=== PATIENT | male | born 1935 | race Caucasian/White ===

== ENCOUNTER 2016-07-30 09:10 | Outpatient (CLI) ==
[2016-07-30 09:36] LABS: BASOPHILS % (AUTO) 0.5 % (0.0-3.0); EOSINOPHILS # (AUTO) 0.1 K/ul (0.0-0.7); EOSINOPHILS % (AUTO) 1.4 % (0.0-7.0); HEMATOCRIT 39.6 % (42.0-52.0); IMMATURE GRANULOCYTE % (AUTO) 0.3 % (0.0-5.0); LYMPHOCYTES # (AUTO) 1.7 K/uL (0.60-3.4); LYMPHOCYTES % (AUTO) 26.5 (10.0-50.0); MEAN CORPUSCULAR HEMOGLOBIN 31.2 pg (27.0-31.0); MEAN CORPUSCULAR HGB CONC 32.8 (31.8-35.4); MONOCYTES # (AUTO) 0.7 K/uL (0.4-2.0); MONOCYTES % (AUTO) 11.2 (0-10); NEUTROPHILS # (AUTO) 3.8 K/ul (2.0-6.9); NEUTROPHILS % (AUTO) 60.1; PLATELET COUNT 171 10^3/uL (140-440); RED BLOOD COUNT 4.17 10^6/ul (4.70-6.10); WHITE BLOOD COUNT 6.34 K/ul (4.2-10.2)
[2016-07-30 09:55] LABS: ALBUMIN 3.6 g/dL (3.4-5.0); ALBUMIN/GLOBULIN RATIO 1.29; ANION GAP 11.9; BILIRUBIN,TOTAL 0.8 mg/dL (0.00-1.20); BUN/CREATININE RATIO 12.24; CALCIUM 8.9 mg/dL (8.2-10.2); CREATININE 0.98 mg/dL (0.60-1.10); POTASSIUM 3.9 mmol/L (3.5-5.1); TOTAL PROTEIN 6.4 g/dL (5.8-8.1)
[2016-07-30 11:33] LABS: BILIRUBIN,URINE Negative (NEGATIVE); KETONES,URINE Negative (NEGATIVE); LEUKOCYTE ESTERASE ,URINE Negative (NEGATIVE); NITRITE,URINE Negative (NEGATIVE); PROTEIN,URINE Negative (NEGATIVE); URINE, BLOOD Trace-intact (NEGATIVE)
[2016-07-30 11:41] LABS: ADD URINE MICROSCOPIC YES
== END 2016-07-30 09:11 | disposition home or self-care (01) ==
LOC: LAB 09:10
PROVIDERS: ATTEND Family Medicine
DX: I25.10 Atherosclerotic heart disease of native coronary artery without angina pectoris (principal); I50.9 Heart failure, unspecified; E78.5 Hyperlipidemia, unspecified; E11.9 Type 2 diabetes mellitus without complications
CPT/HCPCS: 36415; 80053; 80061; 81001; 83036; 85025

== ENCOUNTER 2016-12-17 07:45 | Outpatient (CLI) ==
[2016-12-17 08:32] LABS: BASOPHILS % (AUTO) 0.4 % (0.0-3.0); EOSINOPHILS # (AUTO) 0.1 K/ul (0.0-0.7); EOSINOPHILS % (AUTO) 0.8 % (0.0-7.0); HEMATOCRIT 41.9 % (42.0-52.0); IMMATURE GRANULOCYTE % (AUTO) 0.4 % (0.0-5.0); LYMPHOCYTES # (AUTO) 1.6 K/uL (0.60-3.4); LYMPHOCYTES % (AUTO) 22.9 (10.0-50.0); MEAN CORPUSCULAR HGB CONC 33.4 (31.8-35.4); MEAN CORPUSCULAR VOLUME 95.9 fl (80.0-94.0); MONOCYTES # (AUTO) 0.6 K/uL (0.4-2.0); MONOCYTES % (AUTO) 8.9 (0-10); NEUTROPHILS # (AUTO) 4.7 K/ul (2.0-6.9); NEUTROPHILS % (AUTO) 66.6; PLATELET COUNT 176 10^3/uL (140-440); RED BLOOD COUNT 4.37 10^6/ul (4.70-6.10); WHITE BLOOD COUNT 7.06 K/ul (4.2-10.2)
[2016-12-17 08:53] LABS: ALBUMIN 3.5 g/dL (3.4-5.0); ALBUMIN/GLOBULIN RATIO 1.21; BILIRUBIN,TOTAL 0.61 mg/dL (0.00-1.20); BUN/CREATININE RATIO 12.5; CALCIUM 9.5 mg/dL (8.2-10.2); CHOL/HDL RATIO 3.7 (4.5-6.4); CREATININE 0.88 mg/dL (0.60-1.10); TOTAL PROTEIN 6.4 g/dL (5.8-8.1)
[2016-12-17 09:34] LABS: BASOPHILS % (AUTO) 0.4 % (0.0-3.0); EOSINOPHILS # (AUTO) 0.1 K/ul (0.0-0.7); EOSINOPHILS % (AUTO) 0.8 % (0.0-7.0); HEMATOCRIT 42.2 % (42.0-52.0); HEMOGLOBIN 13.9 g/dl (14.0-18.0); IMMATURE GRANULOCYTE % (AUTO) 0.3 % (0.0-5.0); LYMPHOCYTES # (AUTO) 1.7 K/uL (0.60-3.4); LYMPHOCYTES % (AUTO) 23.3 (10.0-50.0); MEAN CORPUSCULAR HEMOGLOBIN 31.6 pg (27.0-31.0); MEAN CORPUSCULAR HGB CONC 32.9 (31.8-35.4); MEAN CORPUSCULAR VOLUME 95.9 fl (80.0-94.0); MONOCYTES # (AUTO) 0.7 K/uL (0.4-2.0); NEUTROPHILS # (AUTO) 4.9 K/ul (2.0-6.9); NEUTROPHILS % (AUTO) 66.2; PLATELET COUNT 179 10^3/uL (140-440); WHITE BLOOD COUNT 7.37 K/ul (4.2-10.2)
[2016-12-17 09:37] LABS: BILIRUBIN,URINE Negative (NEGATIVE); KETONES,URINE Negative (NEGATIVE); LEUKOCYTE ESTERASE ,URINE Negative (NEGATIVE); NITRITE,URINE Negative (NEGATIVE); PROTEIN,URINE Negative (NEGATIVE); URINE, BLOOD Trace-intact (NEGATIVE)
[2016-12-17 09:38] LABS: ADD URINE MICROSCOPIC YES
[2016-12-17 09:45] LABS: ALBUMIN 3.5 g/dL (3.4-5.0); ALBUMIN/GLOBULIN RATIO 1.21; BILIRUBIN,TOTAL 0.6 mg/dL (0.00-1.20); BUN/CREATININE RATIO 12.5; CALCIUM 9.5 mg/dL (8.2-10.2); CHOL/HDL RATIO 3.6 (4.5-6.4); CREATININE 0.88 mg/dL (0.60-1.10); TOTAL PROTEIN 6.4 g/dL (5.8-8.1)
== END 2016-12-17 07:46 | disposition home or self-care (01) ==
LOC: LAB 07:45
PROVIDERS: ATTEND Family Medicine
DX: E78.5 Hyperlipidemia, unspecified (principal); I10 Essential (primary) hypertension; E11.9 Type 2 diabetes mellitus without complications; I50.9 Heart failure, unspecified; I25.10 Atherosclerotic heart disease of native coronary artery without angina pectoris; Z79.899 Other long term (current) drug therapy
CPT/HCPCS: 36415; 80053; 80061; 81001; 83036; 83880; 85025

== ENCOUNTER 2017-06-17 07:39 | Outpatient (CLI) | END 2017-06-17 07:40 | disposition home or self-care (01) | LOC: LAB 07:39 | PROVIDERS: ATTEND Family Medicine | DX: E78.00 Pure hypercholesterolemia, unspecified (principal); I25.10 Atherosclerotic heart disease of native coronary artery without angina pectoris; I50.9 Heart failure, unspecified; E11.9 Type 2 diabetes mellitus without complications; Z79.899 Other long term (current) drug therapy | CPT/HCPCS: 36415; 80053; 80061; 81001; 83036; 85025 ==

== ENCOUNTER 2022-02-28 19:15 | Inpatient (IN) ==
[2022-02-28] MEDS ORDERED: DUONEB NEB ONE (19:45)
[2022-02-28] MEDS ORDERED: DUONEB NEB STA (19:56)
[2022-02-28 20:21] LABS: MOLECULAR FLU A NEGATIVE BY NAAT (NEGATIVE); MOLECULAR FLU B NEGATIVE BY NAAT (NEGATIVE); RSV MOLECULAR NEGATIVE BY NAAT (NEGATIVE)
[2022-02-28] MEDS ORDERED: ROCEPHIN 1 GM/50 ML D5W 1 GM/50 ML BAG IV STA (20:27)
[2022-02-28] MEDS ORDERED: ZITHROMAX PO STA (20:28)
[2022-02-28 20:37] LABS: ALANINE AMINOTRANSFERASE 70.4 U/L (0-50); ALBUMIN 3.41 g/dL (3.5-5.0); ALKALINE PHOSPHATASE 84.3 U/L (56-119); ASPARTATE AMINO TRANSFERASE 81.8 U/L (17-59); BILIRUBIN,TOTAL 1.6 mg/dL (0.2-1.3); BLOOD UREA NITROGEN 29.4 mg/dL (9-20); CALCIUM 8.96 mg/dL (8.4-10.2); CARBON DIOXIDE 30.4 mmol/L (22-30.0); CHLORIDE 107.7 mmol/L (98-107); CREATINE KINASE 76.8 U/L (55-170); CREATININE 1.3 mg/dL (0.60-1.10); GLUCOSE 180.3 mg/dL (74-106); POTASSIUM 4.3 mmol/L (3.5-5.1); SODIUM 146.8 mmol/L (134.5-145); TOTAL PROTEIN 7.58 g/dL (6.3-8.2)
[2022-02-28 20:44] LABS: BASOPHILS % (AUTO) 0.1 % (0.0-3.0); HEMATOCRIT 52.2 % (42.0-52.0); HEMOGLOBIN 16.3 g/dl (14.0-18.0); IMMATURE GRANULOCYTE # (AUTO) 0.2 (0.0-1.0); LYMPHOCYTES # (AUTO) 0.6 K/uL (0.60-3.4); LYMPHOCYTES % (AUTO) 3.1 (10.0-50.0); MEAN CORPUSCULAR HEMOGLOBIN 29.2 pg (27.0-31.0); MEAN CORPUSCULAR HGB CONC 31.2 (31.8-35.4); MEAN CORPUSCULAR VOLUME 93.5 fl (80.0-94.0); MONOCYTES # (AUTO) 0.4 K/uL (0.4-2.0); MONOCYTES % (AUTO) 2.2 (0-10); NEUTROPHILS # (AUTO) 16.9 K/ul (2.0-6.9); NEUTROPHILS % (AUTO) 93.6 % (42.2-75.2); PLATELET COUNT 290 10^3/uL (140-440); RDW COEFFICIENT OF VARIATION 14.4 % (11.6-14.8); RED BLOOD COUNT 5.58 10^6/ul (4.70-6.10); WHITE BLOOD COUNT 18.07 K/ul (4.2-10.2)
[2022-02-28 20:48] LABS: TROPONIN I 0.045 ng/ml (0.0000-0.120)
--- NOTE | 2022-02-28 21:02 | ED.PDOC ---
General ED Provider: Dr. VIRA MOISE Chief Complaint: Shortness of Air Stated Complaint: Patient is an 86 year old male who comes to the ER with complaints of increasing shortness of breath since he thanks giving where he went out to eat. Complaint of right sided lung pain when he takes a deep breath. Time Seen by Provider: 02/28/22 19:56 Mode of Arrival: Wheelchair Information Source: Patient and Family Nursing and Triage Documentation Reviewed and Agree: Yes Does patient meet sepsis criteria?: No System Inflammatory Response Syndrome: Not Applicable Sepsis Protocol: For patient's 13 years and over: Temp is 96.8 and below OR 101 and greater Pulse >90 BPM Resp >20/minute Acutely Altered Mental Status Are patient's symptoms suggestive of a new infection, such as: -Pneumonia -Skin, Soft Tissue -Endocarditis -UTI -Bone, Joint Infection -Implantable Device -Acute Abdominal Infection -Wound Infection -Meningitis -Blood Stream Catheter Infection -Unknown Respiratory Complaint Exam Shortness of Air Complaint/Exam Onset/Duration: 5 days Symptoms Are: Still present Timing: Constant Initial Severity: Moderate Current Severity: Severe Character: Reports Dyspnea at rest Aggravating: Reports Movement, Deep breaths and Weather Alleviating: Reports Bronchodilators and Oxygen Associated Signs and Symptoms: Reports Cough and Chest pain with cough Cardiac Risk Factors: Reports Prior [place] Home Oxygen Use: No Recent Stress Test: No Recent Echo/LV Function: No Respiratory Distress: Moderate Stridor Present: No Tracheal Deviation: No Subcutaneous Emphysema: No Accessory Muscle Use: No Retractions: Not Present Diminished Breath Sounds: Yes Prolonged Expiratory Phase: No Unable to Speak Full Sentences: No Fatigue: No Leg Swelling: No Ijeoma's Sign Present: No Grunting Respirations: No Kussmaul Respirations: No Differential Diagnoses: [place] and Pneumonia Quality Indicator For Non-Traumatic Chest Pain/Syncope: EKG Performed Review of Systems Review Of Systems Constitutional: Reports No symptoms and Weakness Eyes: Reports No symptoms Ears, Nose, Mouth, Throat: Reports No symptoms Respiratory: Reports Cough and Short of air Cardiac: Reports Chest pain GI: Reports No symptoms : Reports No symptoms Musculoskeletal: Reports No symptoms Skin: Reports No symptoms Neurological: Reports Anxiety Endocrine: Reports No symptoms All Other Systems: Reviewed and Negative [facility] Medical History Myocardial infarct Family History Other No known health problems Social History Smoking and tobacco status: Former smoker Smoking status stop date: 04/01/69 How long ago did patient quit smokin Alcohol intake: unknown Substance use type: does not use Surgical History History of tonsillectomy Hx of heart artery stent Physical Exam Physical Exam Appearance: Reports Ill-appearing Ill-appearing: Moderate Pain Distress: Moderate Eyes: Reports EOMI and Conjunctiva clear ENT: Reports Nose normal Neck: Nonsupple Respiratory: Reports Airway patent, Breath sounds equal and Breath sounds diminished (on the right ) Cardiovascular: Reports RRR and Tachycardia GI/: Reports Soft and Nontender Musculoskeletal: Reports Normal strength and ROM intact Skin: Reports Warm and Dry Neurological: Reports Motor intact Psychiatric: Reports Anxious Interpretation Radiology Interpretation Radiology Interpretation By: ED Physician Radiology Results: Positive (Right lower lobe Pneumonia ) Exam Interpreted: Portable CXR EKG Interpretation Time of EKG #1: 19:56 Rate: Tachy Rhythm: Sinus Ectopy: None [place]: Left ST Segment: Normal 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 Critical Care Note Critical Care Note Total Critical Care Time (mins): 30 Course Course Hematology/Chemistry: 02/28/22 20:46 02/28/22 20:19 Orders, Labs, Meds: Lab Review 02/28/22 02/28/22 02/28/22 20:01 20:01 20:01 WBC RBC Hgb Hct MCV MCH MCHC RDW Coeff of Ben Plt Count Immature Gran % (Auto) Neut % (Auto) Lymph % (Auto) [place] % (Auto) Eos % (Auto) Baso % (Auto) Neut # (Auto) Lymph # (Auto) [place] # (Auto) Eos # (Auto) Baso # (Auto) Immature Gran # (Auto) Sodium Potassium Chloride Carbon Dioxide Anion Gap BUN Creatinine Estimated GFR (MDRD) BUN/Creatinine Ratio Glucose Lactic Acid Calcium Total Bilirubin AST ALT Alkaline Phosphatase Total Creatine Kinase Troponin I Total Protein Albumin Globulin Albumin/Globulin Ratio Influ A Molecular Assay Negative by naat Influ B Molecular Assay Negative by naat RSV Antigen Negative by naat SARS CoV-2 RNA Rapid ONUR Positive H 02/28/22 02/28/22 02/28/22 20:19 20:19 20:46 WBC 18.07 H RBC 5.58 Hgb 16.3 Hct 52.2 H MCV 93.5 MCH 29.2 MCHC 31.2 L RDW Coeff of Ben 14.4 Plt Count 290 Immature Gran % (Auto) 1.0 Neut % (Auto) 93.6 H Lymph % (Auto) 3.1 L [place] % (Auto) 2.2 Eos % (Auto) 0.0 Baso % (Auto) 0.1 Neut # (Auto) 16.9 H Lymph # (Auto) 0.6 [place] # (Auto) 0.4 Eos # (Auto) 0.0 Baso # (Auto) 0.0 Immature Gran # (Auto) 0.2 Sodium 146.8 H Potassium 4.30 Chloride 107.7 H Carbon Dioxide 30.4 H Anion Gap 13.00 BUN 29.4 H Creatinine 1.30 H Estimated GFR (MDRD) 52.00 BUN/Creatinine Ratio 22.61 Glucose 180.3 H Lactic Acid 6.50 H Calcium 8.96 Total Bilirubin 1.60 H AST 81.8 H ALT 70.4 H Alkaline Phosphatase 84.3 Total Creatine Kinase 76.8 Troponin I 0.045 Total Protein 7.58 Albumin 3.41 L Globulin 4.17 Albumin/Globulin Ratio 0.81 Influ A Molecular Assay Influ B Molecular Assay RSV Antigen SARS CoV-2 RNA Rapid ONUR Orders Category Date Time Status EKG-(ED ONLY) Stat CARDIO 02/28/22 19:56 Ordered NEBULIZER TREATMENT Stat CARDIO 02/28/22 19:57 Ordered ED APPLY O2 .ONCE EMERGENCY 02/28/22 19:56 Active ED PEANUT ROASTER APPLIED .ONCE EMERGENCY 02/28/22 19:56 Active ED IV/MEDIPORT/POWERPORT .ONCE EMERGENCY 02/28/22 19:56 Active BLOOD CULTURE (ED ONLY) Stat LAB 02/28/22 20:19 Received CBC W/ AUTO DIFF Stat LAB 02/28/22 20:46 Completed COMPREHENSIVE METABOLIC PANEL Stat LAB 02/28/22 20:19 Completed CREATINE KINASE Stat LAB 02/28/22 20:19 Completed FLU A/B MOLECULAR Stat LAB 02/28/22 20:01 Completed LACTIC ACID Stat LAB 02/28/22 20:19 Completed PROCALCITONIN Stat LAB 02/28/22 20:19 Received RSV Stat LAB 02/28/22 20:01 Completed SARS COV-2 RNA RAPID ONUR Stat LAB 02/28/22 20:01 Completed TROPONIN I Stat LAB 02/28/22 20:19 Completed 0.9 % Sodium Chloride [Saline Flush] MEDS 02/28/22 19:56 Active 1 syr IVF PRN PRN Azithromycin [Zithromax] MEDS 02/28/22 20:28 Discontinued 500 mg PO ONCE STA Ceftriaxone/D5w 1 gm Premix [Rocephin 1 gm/50 ml D5w] MEDS 02/28/22 20:27 Discontinued 1 gm in 50 ml IV ONCE Ipratropium/Albuterol Neb [Duoneb] MEDS 02/28/22 19:45 Discontinued 3 ml NEB .STK-MED ONE Ipratropium/Albuterol Neb [Duoneb] MEDS 02/28/22 19:56 Discontinued 3 ml NEB ONCE STA CHEST, 1V AP ONLY Stat RADS 02/28/22 19:56 Taken Medications Generic Name Dose Route Start Last Admin Trade Name Freq PRN Reason Stop Dose Admin Acetaminophen 650 mg 02/28/22 21:16 Acetaminophen 325 Mg Tablet PO Q4H PRN Fever and Mild Pain Albuterol/Ipratropium 3 ml 02/28/22 22:00 Ipratropium/Albuterol Vial.Neb NEB RTQ4H SYLVIE Aspirin 81 mg 03/01/22 08:30 Aspirin 81 Mg Tablet. [facility] Azithromycin 250 mg 03/01/22 09:00 Azithromycin 250 Mg Tablet PO 03/04/22 09:01 DAILY [facility] Dexamethasone Sodium Phosphate 6 mg 03/01/22 09:00 Dexamethasone Sod Phos 10 Mg/Ml Inj IVP DAILY [facility] Enoxaparin Sodium 40 mg 03/01/22 09:00 Enoxaparin Sodium 40 Mg/0.4 Ml Syr SUBCUT DAILY [facility] Sodium Chloride 1,000 mls @ 75 mls/hr 02/28/22 21:30 Sodium Chloride IV .[id number] SYLVIE CEFTRIAXONE/D5W 1 GM PREMIX 1 gm in 50 mls @ 75 mls/hr 03/01/22 09:00 Rocephin 1 Gm/50 Ml D5w IV 03/04/22 08:59 DAILY [facility] REMDESIVIR SOLUTION 200 mg/ 290 mls @ 145 mls/hr 03/01/22 09:00 Sodium Chloride IV 03/01/22 10:59 ONCE ONE REMDESIVIR SOLUTION 100 mg/ 270 mls @ 270 mls/hr 03/02/22 09:00 Sodium Chloride IV DAILY SYLVIE Ondansetron HCl 4 mg 02/28/22 21:16 Ondansetron Hcl/Pf 4 Mg/2 Ml Sdv IVP Q6H PRN Nausea / Vomiting Sodium Chloride 1 syr 02/28/22 19:56 0.9% Sodium Chloride 10 Ml Disp.Syrin IVF PRN PRN To flush IV Discontinued Medications Generic Name Dose Route Start Last Admin Trade Name Freq PRN Reason Stop Dose Admin Albuterol/Ipratropium 3 ml 02/28/22 19:56 02/28/22 20:30 Ipratropium/Albuterol Vial.Neb NEB 02/28/22 19:57 Not Given ONCE STA Azithromycin 500 mg 02/28/22 20:28 02/28/22 20:46 Azithromycin 250 Mg Tablet PO 02/28/22 20:29 500 mg ONCE STA Administration Dexamethasone Sodium Phosphate 6 mg 02/28/22 21:15 02/28/22 21:25 Dexamethasone Sod Phos 10 Mg/Ml Inj IVP 02/28/22 21:16 6 mg ONCE ONE Administration CEFTRIAXONE/D5W 1 GM PREMIX 1 gm in 50 mls @ 75 mls/hr 02/28/22 20:27 20:38 Rocephin 1 Gm/50 Ml D5w IV 02/28/22 21:06 75 mls/hr ONCE STA Administration Vital Signs: Temp Pulse Resp BP Pulse Ox 02/28/22 19:16 97 F L 118 H 24 H 111/68 88 L Discharge Plan Discharge Patient Disposition: ADMITTED INPATIENT Discharge Problem: Acute hypoxemic respiratory failure due to severe acute respiratory syndrome coronavirus 2 (SARS-CoV-2) disease, COVID-19, Community acquired pneumonia Did you review [place] FACIALIST?: Not Applicable ED Provider: VIRA MOISE Condition: Fair Physician Progress Note: []
[2022-02-28] MEDS ORDERED: DECADRON IVP ONE (21:15)
[2022-02-28] MEDS ORDERED: TYLENOL PO PRN (21:16)
[2022-02-28 21:23] LABS: ABG PH 7.49 (7.35-7.45)
[2022-02-28 21:24] LABS: BEecf -3.5 (-2.0-3.0); COHb 2.1 (0.5-1.5); HCO3 19.8 (21-28); MetHb 1.4 (0-1.5); TCO2 20.5 (19-24); sO2 81.1 % (94-98); tHb 16.3 g/dl (11.7-17.4)
[2022-02-28 21:25] LABS: ABG O2 HGB 76.5 % (95-100)
[2022-02-28] MEDS: SODIUM CHLORIDE 1,000 ML IV SCH (21:30)
--- NOTE | 2022-02-28 21:59 | DI ---
EXAM: CHEST RADIOGRAPH TECHNIQUE: Single frontal chest radiograph. HISTORY: Shortness of breath. COMPARISON: None. FINDINGS: Patchy air space disease at both lung bases consistent with bilateral multi focal pneumonia. Otherwi se clear lungs The heart size is normal. There is calcification in the aorta consistent with atherosclerosis. There is no pleural effusion. There is no pneumothorax. IMPRESSION: 1. Bilateral multi focal pneumonia at the lung bases. 2. Atherosclerosis. 3. Otherwise unremarkable chest radiograph.
[2022-02-28] MEDS: DUONEB NEB SCH (22:05)
[2022-03-01] MEDS: DUONEB NEB SCH ×6 (02:08→21:03)
[2022-03-01 02:20] VITALS: BMI 23.8
[2022-03-01 05:29] LABS: BASOPHILS % (AUTO) 0.2 % (0.0-3.0); HEMATOCRIT 47.8 % (42.0-52.0); HEMOGLOBIN 15.1 g/dl (14.0-18.0); IMMATURE GRANULOCYTE # (AUTO) 0.1 (0.0-1.0); IMMATURE GRANULOCYTE % (AUTO) 0.8 % (0.0-5.0); LYMPHOCYTES # (AUTO) 0.5 K/uL (0.60-3.4); LYMPHOCYTES % (AUTO) 3.5 (10.0-50.0); MEAN CORPUSCULAR HEMOGLOBIN 29.6 pg (27.0-31.0); MEAN CORPUSCULAR HGB CONC 31.6 (31.8-35.4); MEAN CORPUSCULAR VOLUME 93.7 fl (80.0-94.0); MONOCYTES # (AUTO) 0.3 K/uL (0.4-2.0); MONOCYTES % (AUTO) 1.9 (0-10); NEUTROPHILS # (AUTO) 14.6 K/ul (2.0-6.9); NEUTROPHILS % (AUTO) 93.6 % (42.2-75.2); PLATELET COUNT 260 10^3/uL (140-440); RDW COEFFICIENT OF VARIATION 14.4 % (11.6-14.8); WHITE BLOOD COUNT 15.58 K/ul (4.2-10.2)
[2022-03-01 05:43] LABS: ALANINE AMINOTRANSFERASE 65.6 U/L (0-50); ALBUMIN 3.11 g/dL (3.5-5.0); ALKALINE PHOSPHATASE 75.5 U/L (56-119); ASPARTATE AMINO TRANSFERASE 73.4 U/L (17-59); BILIRUBIN,TOTAL 1.19 mg/dL (0.2-1.3); BLOOD UREA NITROGEN 29.2 mg/dL (9-20); CALCIUM 8.47 mg/dL (8.4-10.2); CARBON DIOXIDE 34.9 mmol/L (22-30.0); CHLORIDE 106.4 mmol/L (98-107); CREATININE 1.21 mg/dL (0.60-1.10); POTASSIUM 3.58 mmol/L (3.5-5.1); SODIUM 146.8 mmol/L (134.5-145); TOTAL PROTEIN 7.01 g/dL (6.3-8.2)
[2022-03-01 07:49] LABS: PROTHROMBIN TIME 11.1 SEC (9.3-11.0)
--- NOTE | 2022-03-01 08:21 | PCM.PROG ---
Date Seen by Provider: 03/01/22 Time Seen by Provider: 08:18 Subjective: Patient has no complaints. Objective: Vitals: T=97.5 F, P=102, R=29, BF=741/69, SPO2=92 Alert, but confused. Tachypneic. No respiratory distress. HEENT: [] Neck: [] No JVD. Lungs: [] Breath tones equal and coarse. Clear. CVS: [] RRR Abdomen: [] Extremities: []No edema. Neurological: []No deficits. Skin: [] Lab/Tests/Diagnostic Imaging: [] (1) Acute hypoxemic respiratory failure due to severe acute respiratory syndrome coronavirus 2 (SARS-CoV-2) disease: Status: Acute Code(s): U07.1 - COVID-19; J96.01 - Acute respiratory failure with hypoxia SNOMED Code(s): 977359792 Assessment: Patient requiring 6L/min [place] oxygen to maintain saturation. (2) COVID-19: Status: Acute Code(s): U07.1 - COVID-19 SNOMED Code(s): 168145905 (3) Community acquired pneumonia: Status: Acute Code(s): J18.9 - Pneumonia, unspecified organism SNOMED Code(s): 511662614 Plan: Increase activity. Continue pulmonary toilet and antibiotics.
[2022-03-01] MEDS: SOLU-MEDROL 125 MG IVP SCH ×3 (08:48→20:18)
[2022-03-01] MEDS: ASPIRIN EC PO SCH (08:48)
[2022-03-01] MEDS: LOVENOX SUBCUT SCH (08:49)
[2022-03-01] MEDS: ZITHROMAX PO SCH (08:49)
[2022-03-01] MEDS ORDERED: DECADRON IVP SCH (09:00)
[2022-03-01] MEDS ORDERED: VEKLURY 200 MG in SODIUM CHLORIDE 250 ML IV ONE (09:00)
[2022-03-01] MEDS: SODIUM CHLORIDE 1,000 ML IV SCH (13:50)
--- NOTE | 2022-03-01 14:51 | RS.PTINEVL ---
Subjective - Patient information Date of Evaluation: 03/01/22 Date of Arrival on Unit: 02/28/22 Admitted From:: Home Diagnosis: COVID+, acute respiratory failure Usual Living Arrangement: With Others (with son) Home Environment: House Medical History: Hypertension Medical History Comments:: [place] Surgical History: Tonsillectomy Surgical History Comments:: cardiac stent Medications: see chart Subjective Information/ Patient Comments:: pt's speech is very difficult to understand. pt oriented to person only. pt unable to answer history questions. - Level of function Abilities prior to this admission: pt is unable to answer questions regarding prior level of function. Current Level of Function: Partially Dependent Interventions - Objective Patient Orientation: Person Current Interventions: IV's, Oxygen, Telemetry Observation: pt seen and is soiled due to being incontinent of urine Range of Motion - ROM Right Upper Extremity AROM: WFL's Left Upper Extremity AROM: WFL's Right Lower Extremity AROM: WFL's Left Lower Extremity AROM: WFL's Muscle Strength - Muscle Strength Right Upper Extremity Strength: Mild Weakness (grossly 4-/5) Left Upper Extremity Strength: Mild Weakness (grossly 4-/5) Right Lower Extremity Strength: Mild Weakness (hip flex 4-/5, knee flex/ext 4/5, ankle Df/PF 4/5) Left Lower Extremity Strength: Mild Weakness (hip flex 4-/5, knee flex/ext 4/5, ankle Df/PF 4/5) Sensation - Sensation Comments: unable to fully assess due to mental status Palpation Palpation Findings: None/Normal Balance - Sitting Balance and Reactions Static Sitting Balance: Fair Dynamic Sitting Balance: Poor - Standing Balance and Reactions Static Standing Balance: Poor Dynamic Standing Balance: Poor Standing Equilibrium Reactions: Delayed Left, Delayed Right Standing Protective Reactions: Delayed Left, Delayed Right Functional Mobility - Bed Mobility Rolling R/L: Min Assist Supine to Sit: Min Assist - Transfers Sit to Stand: Min Assist, 1 person assist, 2 person assist Stand to Sit: Min Assist, 1 person assist, 2 person assist - Safety Awareness Safety Awareness: Fair LICHA INDEX SCORE: n/a Ambulation - Ambulation Orthotic/Prosthetic Device: No Distance: 2-3 steps Assistance needed with Ambulation: Min Assist, 2 person assist Gait Deviations: Forward posture, Short stride, Deviates from path Ambulation Comments: pt with flexed posture, decreased step length. Feel pt may benefit from use of rwx to improve safety Factors Affecting Ambulation: Decreased Balance, Breathing/O2 Saturation, Weakness, Decreased Safety, Cognitive Status, Limited Endurance Treatment time - Time with patient Length of Evaluation: 21 Total treatment time: 26 Patient Education - Education Patient Education: Activity Modification, Education of Plan of Care Teaching Recipient: Patient Teaching Methods: Demonstration Assessment - Assessment Problem List:: Decreased level of function, Requires training/education, Decreased safety/Risk of falls, Weakness, Cognitive status limits abilities Rehab Potential: Fair Further Therapy Indicated?: Yes Candidate for Swing Bed for Therapy Services?: Feel pt may be more of a c andidate for LTC for rehab due to cognitive status. Evaluation Complexity: HISTORY: Medium, EXAM OF BODY SYSTEMS: Medium, CLINICAL PRESENTATION: Medium, CLINICAL DECISION MAKING: Medium Patient's Goal(s): pt unable to express goals. Short Term Goals GOAL #1: pt demonstrate rolling and scooting in bed with CGA Goal to be met by: 03/04/22 GOAL #2: Transfer sup to/from sit CGA Goal to be met by: 03/04/22 GOAL #3: Transfer sit to/from stand min to CGA x 1 Goal to be met by: 03/04/22 GOAL #4: pt amb with rwx 25ft with min x 1 Goal to be met by: 03/04/22 [facility] Goals GOAL #1: pt transferred sup to/from sit to/from stand CGA to SBa Goal to be met by: 03/06/22 GOAL #2: pt amb with rwx 75ft with CGA x 1 Goal to be met by: 03/06/22 GOAL #3: Improve strength BLE 4+/5 Goal to be met by: 03/06/22 Plan Plan of Care: Therapeutic EX, Therapeutic Activity Other:: gait training Frequency of Treatment: 1-2 X day, as tolerated Duration of Treatment: 5 days Anticipated Discharge Destination: undetermined Treatment Diagnosis (ICD 10 Codes): COVID Z86.19. impaired balance R 26.81. gait difficulty R 26.2. weakness M62.81 Has the Physician been added for Co-signature?: Yes
[2022-03-01] MEDS: ROCEPHIN 1 GM/50 ML D5W 1 GM/50 ML BAG IV SCH (20:18)
[2022-03-02] MEDS: DUONEB NEB SCH ×6 (01:05→21:30)
[2022-03-02] MEDS: SODIUM CHLORIDE 1,000 ML IV SCH ×3 (03:22→17:33)
[2022-03-02] MEDS: SOLU-MEDROL 125 MG IVP SCH ×3 (05:06→20:56)
[2022-03-02 05:23] LABS: BASOPHILS % (AUTO) 0.1 % (0.0-3.0); HEMATOCRIT 44.4 % (42.0-52.0); HEMOGLOBIN 14.2 g/dl (14.0-18.0); IMMATURE GRANULOCYTE # (AUTO) 0.1 (0.0-1.0); IMMATURE GRANULOCYTE % (AUTO) 0.7 % (0.0-5.0); LYMPHOCYTES # (AUTO) 0.5 K/uL (0.60-3.4); LYMPHOCYTES % (AUTO) 2.7 (10.0-50.0); MEAN CORPUSCULAR HEMOGLOBIN 29.4 pg (27.0-31.0); MEAN CORPUSCULAR VOLUME 91.9 fl (80.0-94.0); MONOCYTES # (AUTO) 0.3 K/uL (0.4-2.0); MONOCYTES % (AUTO) 1.9 (0-10); NEUTROPHILS # (AUTO) 17.1 K/ul (2.0-6.9); NEUTROPHILS % (AUTO) 94.6 % (42.2-75.2); PLATELET COUNT 267 10^3/uL (140-440); RDW COEFFICIENT OF VARIATION 14.3 % (11.6-14.8); RED BLOOD COUNT 4.83 10^6/ul (4.70-6.10); WHITE BLOOD COUNT 18.04 K/ul (4.2-10.2)
[2022-03-02 05:36] LABS: ALANINE AMINOTRANSFERASE 47.6 U/L (0-50); ALBUMIN 2.87 g/dL (3.5-5.0); ALKALINE PHOSPHATASE 70.2 U/L (56-119); ASPARTATE AMINO TRANSFERASE 42.9 U/L (17-59); BILIRUBIN,TOTAL 0.87 mg/dL (0.2-1.3); BLOOD UREA NITROGEN 22.3 mg/dL (9-20); CALCIUM 8.09 mg/dL (8.4-10.2); CHLORIDE 108.1 mmol/L (98-107); CREATININE 0.92 mg/dL (0.60-1.10); POTASSIUM 3.51 mmol/L (3.5-5.1); SODIUM 141.3 mmol/L (134.5-145); TOTAL PROTEIN 6.48 g/dL (6.3-8.2)
[2022-03-02] MEDS: ASPIRIN EC PO SCH (08:40)
[2022-03-02] MEDS: ZITHROMAX PO SCH (08:40)
[2022-03-02] MEDS: LOVENOX SUBCUT SCH (08:40)
[2022-03-02] MEDS ORDERED: VEKLURY 100 MG in SODIUM CHLORIDE 250 ML IV SCH (09:00)
--- NOTE | 2022-03-02 12:41 | CT ---
EXAM: CHEST CT WITHOUT CONTRAST HISTORY: Pneumonia. TECHNIQUE: CT acquisition of the chest from the thoracic inlet to the upper abdomen without IV contra st administration. CT Dose Reduction Techniques Performed: Yes. COMPARISON: Chest radiograph 02/28/2022. FINDINGS: Lines, Tubes, Devices: None. Lung Parenchyma and Airways: Central airways are patent. Extensive ground-glass and patchy consolidat ion most pronounced in the periphery of the lung bases bilaterally. No suspicious pulmonary nodule. Pleural Space: No pleural effusion. No pneumothorax. Thoracic Inlet, Mediastinum, and Sofia: Thyroid gland is normal. No lymphadenopathy. Heart, Vessels, and Pericardium: Normal caliber aorta. Extensive atherosclerotic calcifications of th e aorta and coronary arteries. Normal caliber main pulmonary artery. Heart chambers are not enlarged. No pericardial effusion. Bones and Soft Tissues: No acute osseous abnormality. Advanced multilevel spondylosis. Exaggerated t horacic kyphosis. No mass or lymphadenopathy. Upper Abdomen: Colonic diverticulosis. IMPRESSION: Bilateral lung opacities consistent with pneumonia. Atherosclerosis with coronary calcifications. All CT scans are performed using dose optimization techniques as appropriate to the performed exam an d include at least one of the following: Automated exposure control, adjustment of the mA and/or kV according t o size, and the use of iterative reconstruction technique.
--- NOTE | 2022-03-02 13:02 | CT ---
EXAM: CT abdomen pelvis without contrast HISTORY: Abdominal pain COMPARISON: None TECHNIQUE: Serial axial images of the abdomen pelvis were performed from the lung bases through the inferior pelvis without contrast. These were viewed in multiple planes. FINDINGS: Please see report from CT chest obtained at the same time for description of findings in the lower stefania ngs including areas of consolidation and ground-glass densities. Please note, some of the images of the abdomen are degraded by motion. Gallstones. No acute process involving the liver, pancreas or spleen. Mild nonspecific bilateral perinephric fat stranding. No right or left hydronephrosis. The adrenal glands are unremarkable. Small hiatal hernia. Diverticulosis. No CT findings of acute diverticulitis. The small bowel and a ppendix are normal. Heterogeneous prostate gland. Urinary bladder is distended. Fat filled left inguinal hernia. ASVD. Degenerative changes at multiple levels of the spine. Degenerative changes to the sacroiliac joints. IMPRESSION: No acute CT findings in the abdomen or pelvis. Heterogeneous prostate gland and distended urinary bladder. Please see above description and additional findings. All CT scans are performed using dose optimization techniques as appropriate to the performed exam an d include at least one of the following: Automated exposure control, adjustment of the mA and/or kV according t o size, and the use of iterative reconstruction technique.
--- NOTE | 2022-03-02 17:58 | PCM.PROG ---
Date Seen by Provider: 03/02/22 Time Seen by Provider: 09:00 Subjective: CC - Cough and SOA Admit 02/28 Objective: Vitals: T=99.8 F, P=108, R=27, XN=498/72, SPO2=86 HEENT: [WNL] Neck: [supple] Lungs: [Reduced BS] CVS: [RRR] Abdomen: [soft] Extremities: [Intact] Neurological: [intact] Skin: [wnl] Lab/Tests/Diagnostic Imaging: see chart[] (1) Acute hypoxemic respiratory failure due to severe acute respiratory syndrome coronavirus 2 (SARS-CoV-2) disease: Status: Acute Code(s): U07.1 - COVID-19; J96.01 - Acute respiratory failure with hypoxia SNOMED Code(s): 908070818 Assessment: On supplemental oxygen, actively being titrated today for optimum response. Will order chest CT, along with abd CT since having some abd pain. Check ABG later. (2) COVID-19: Status: Acute Code(s): U07.1 - COVID-19 SNOMED Code(s): 911791484 Assessment: Recent dx, causing resp. sx and weakness. (3) Community acquired pneumonia: Status: Acute Code(s): J18.9 - Pneumonia, unspecified organism SNOMED Code(s): 988305613 Assessment: Bacterial vx COVID pneumonia, on abx, continue. Plan: See orders. Continue in resp. isolation.
[2022-03-02] MEDS: ROCEPHIN 1 GM/50 ML D5W 1 GM/50 ML BAG IV SCH (20:40)
[2022-03-03] MEDS: DUONEB NEB SCH ×6 (01:25→22:00)
[2022-03-03] MEDS: SOLU-MEDROL 125 MG IVP SCH ×3 (04:10→20:56)
[2022-03-03] MEDS: SODIUM CHLORIDE 1,000 ML IV SCH ×2 (04:50→15:11)
[2022-03-03] MEDS: ZITHROMAX PO SCH (08:45)
[2022-03-03] MEDS: LOVENOX SUBCUT SCH (08:45)
[2022-03-03] MEDS: ASPIRIN EC PO SCH (08:45)
[2022-03-03] MEDS ORDERED: SODIUM CHLORIDE 500 ML IV STA (10:17)
--- NOTE | 2022-03-03 20:11 | PCM.PROG ---
Date Seen by Provider: 03/03/22 Time Seen by Provider: 09:00 Subjective: CC - Not voicing any new complaint, but limited ability to communicate due to dementia. Objective: Vitals: T=97.7 F, P=98, R=31, AN=452/93, SPO2=92 HEENT: [grossly wnl] Neck: supple Lungs: [Diminished and course BS] CVS: [RRR] Abdomen: [soft] Extremities: [intact] Neurological: [Dementia without change] Skin: [WNL] Lab/Tests/Diagnostic Imaging: [See chart] (1) Acute hypoxemic respiratory failure due to severe acute respiratory syndrome coronavirus 2 (SARS-CoV-2) disease: Status: Acute Code(s): U07.1 - COVID-19; J96.01 - Acute respiratory failure with hypoxia SNOMED Code(s): 500126190 Assessment: On 100 % NRB with sat around 90%. (2) COVID-19: Status: Acute Code(s): U07.1 - COVID-19 SNOMED Code(s): 547178713 Assessment: Supportive tx. (3) Community acquired pneumonia: Status: Acute Code(s): J18.9 - Pneumonia, unspecified organism SNOMED Code(s): 442701533 Assessment: COVID pneumonia. On rocephin zithromax combo in case bacterial component. WBC 18K, but on steroids. Plan: Taper down steroids. Consider abx change in case the pneumonia has a bacterial component not being treated. Family should discuss code status.
[2022-03-03] MEDS: ROCEPHIN 1 GM/50 ML D5W 1 GM/50 ML BAG IV SCH (20:54)
[2022-03-04] MEDS: DUONEB NEB SCH ×6 (02:15→21:55)
[2022-03-04] MEDS: SODIUM CHLORIDE 1,000 ML IV SCH (04:12)
[2022-03-04] MEDS: SOLU-MEDROL 125 MG IVP SCH ×3 (04:49→20:59)
[2022-03-04] MEDS: ASPIRIN EC PO SCH (08:41)
[2022-03-04] MEDS: ZITHROMAX PO SCH (08:42)
[2022-03-04] MEDS: LOVENOX SUBCUT SCH (08:42)
[2022-03-04 10:19] LABS: ABG O2 HGB 88.5 % (95-100); ABG PH 7.46 (7.35-7.45); BEecf -0.3 (-2.0-3.0); COHb 2.7 (0.5-1.5); HCO3 23.5 (21-28); MetHb 0.3 (0-1.5); TCO2 24.5 (19-24); tHb 14.4 g/dl (11.7-17.4)
[2022-03-04 10:28] LABS: BASOPHILS % (AUTO) 0.1 % (0.0-3.0); HEMOGLOBIN 14.7 g/dl (14.0-18.0); IMMATURE GRANULOCYTE # (AUTO) 0.1 (0.0-1.0); IMMATURE GRANULOCYTE % (AUTO) 0.6 % (0.0-5.0); LYMPHOCYTES # (AUTO) 0.3 K/uL (0.60-3.4); LYMPHOCYTES % (AUTO) 1.3 (10.0-50.0); MEAN CORPUSCULAR HEMOGLOBIN 28.9 pg (27.0-31.0); MEAN CORPUSCULAR HGB CONC 31.3 (31.8-35.4); MEAN CORPUSCULAR VOLUME 92.3 fl (80.0-94.0); MONOCYTES # (AUTO) 0.5 K/uL (0.4-2.0); MONOCYTES % (AUTO) 2.2 (0-10); NEUTROPHILS # (AUTO) 19.9 K/ul (2.0-6.9); NEUTROPHILS % (AUTO) 95.8 % (42.2-75.2); PLATELET COUNT 286 10^3/uL (140-440); RDW COEFFICIENT OF VARIATION 14.4 % (11.6-14.8); RED BLOOD COUNT 5.09 10^6/ul (4.70-6.10)
[2022-03-04 10:38] LABS: ALANINE AMINOTRANSFERASE 60.7 U/L (0-50); ALBUMIN 2.98 g/dL (3.5-5.0); BILIRUBIN,TOTAL 1.25 mg/dL (0.2-1.3); BLOOD UREA NITROGEN 32.4 mg/dL (9-20); CALCIUM 8.36 mg/dL (8.4-10.2); CHLORIDE 113.7 mmol/L (98-107); CREATININE 1.32 mg/dL (0.60-1.10); GLUCOSE 234.2 mg/dL (74-106); POTASSIUM 3.93 mmol/L (3.5-5.1); SODIUM 144.4 mmol/L (134.5-145); TOTAL PROTEIN 6.49 g/dL (6.3-8.2)
--- NOTE | 2022-03-04 10:56 | DI ---
EXAM: CHEST RADIOGRAPH TECHNIQUE: Single frontal chest radiograph. HISTORY: Shortness of breath. COMPARISON: 02/28/2022. FINDINGS: Mild left basilar atelectasis or pneumonia. Previously visualized bibasilar multi focal pneumonia is markedly improved. The lungs are otherwise clear. The heart size is normal. There is calcification in the aorta consistent with atherosclerosis. There is no pleural effusion. There is no pneumothorax. IMPRESSION: 1. Marked improvement in bibasilar multi focal pneumonia with only mild left basilar atelectasis or pneumonia remaining. 2. Atherosclerosis. 3. Otherwise unremarkable chest radiograph.
--- NOTE | 2022-03-04 11:34 | PCM.PROG ---
Date Seen by Provider: 03/04/22 Time Seen by Provider: 11:31 Subjective: nursing staff reported decreasing oxygen sats--the patient voices no complaints Objective: Vitals: T=97.6 F, P=88, R=26, YT=384/85, SPO2=86 HEENT: [] Neck: [supple] Lungs: [scattered rhonchi] CVS: rrr] Abdomen: [soft nt] Extremities: [] Neurological: [nursing staff report baseline] Skin: [] Lab/Tests/Diagnostic Imaging: abgs, labs and cxr reviewed---cxr appears improved according to the radiologist.[] (1) Acute hypoxemic respiratory failure due to severe acute respiratory syndrome coronavirus 2 (SARS-CoV-2) disease: Status: Acute Code(s): U07.1 - COVID-19; J96.01 - Acute respiratory failure with hypoxia SNOMED Code(s): 952441753 (2) COVID-19: Status: Acute Code(s): U07.1 - COVID-19 SNOMED Code(s): 569356943 (3) Community acquired pneumonia: Status: Acute Code(s): J18.9 - Pneumonia, unspecified organism SNOMED Code(s): 598372150 Plan: will try vapotherm to improve oxygenation, try to reach poa regarding code status--d/w with dalia
[2022-03-04] MEDS ORDERED: LASIX IVP STA (12:00)
[2022-03-04 14:52] LABS: BILIRUBIN,URINE Negative (NEGATIVE); CLARITY,URINE Clear (CLEAR); COLOR,URINE Dark (YELLOW); GLUCOSE, URINE (UA) Trace (NEGATIVE); KETONES,URINE Negative (NEGATIVE); LEUKOCYTE ESTERASE ,URINE Negative (NEGATIVE); NITRITE,URINE Negative (NEGATIVE); PROTEIN,URINE Trace (NEGATIVE); URINE, BLOOD 3+ (NEGATIVE); UROBILINOGEN,URINE 0.2 (0.2)
[2022-03-04 14:56] LABS: SQUAMOUS EPITHELIAL CELL,UR NOT PRESENT (0-5); URINE WBC, MICROSCOPIC 0-2 (0-2)
[2022-03-05] MEDS: DUONEB NEB SCH ×6 (01:40→21:45)
[2022-03-05 04:59] LABS: ABG O2 HGB 92.6 % (95-100); BEecf 3.3 (-2.0-3.0); COHb 1.9 (0.5-1.5); HCO3 26.3 (21-28); TCO2 27.3 (19-24); sO2 94.2 % (94-98); tHb 14.6 g/dl (11.7-17.4)
[2022-03-05 05:09] LABS: ABG PH 7.51 (7.35-7.45)
[2022-03-05] MEDS: SOLU-MEDROL 125 MG IVP SCH ×3 (05:49→20:16)
[2022-03-05] MEDS: LOVENOX SUBCUT SCH (09:15)
[2022-03-05] MEDS: ZOFRAN 4 MG/2 ML IVP PRN ×2 (09:16→16:33)
[2022-03-05] MEDS: ASPIRIN EC PO SCH (09:16)
[2022-03-05 11:04] LABS: BASOPHILS % (AUTO) 0.1 % (0.0-3.0); HEMATOCRIT 44.8 % (42.0-52.0); IMMATURE GRANULOCYTE # (AUTO) 0.1 (0.0-1.0); IMMATURE GRANULOCYTE % (AUTO) 0.5 % (0.0-5.0); LYMPHOCYTES # (AUTO) 0.2 K/uL (0.60-3.4); LYMPHOCYTES % (AUTO) 1.3 (10.0-50.0); MEAN CORPUSCULAR HGB CONC 31.3 (31.8-35.4); MEAN CORPUSCULAR VOLUME 92.9 fl (80.0-94.0); MONOCYTES # (AUTO) 0.3 K/uL (0.4-2.0); MONOCYTES % (AUTO) 1.8 (0-10); NEUTROPHILS # (AUTO) 14.3 K/ul (2.0-6.9); NEUTROPHILS % (AUTO) 96.3 % (42.2-75.2); PLATELET COUNT 247 10^3/uL (140-440); RDW COEFFICIENT OF VARIATION 14.6 % (11.6-14.8); RED BLOOD COUNT 4.82 10^6/ul (4.70-6.10); WHITE BLOOD COUNT 14.82 K/ul (4.2-10.2)
[2022-03-05] MEDS ORDERED: LASIX IVP ONE ×2 (11:15→11:30)
[2022-03-05 11:20] LABS: ALANINE AMINOTRANSFERASE 56.6 U/L (0-50); ALBUMIN 2.58 g/dL (3.5-5.0); ALKALINE PHOSPHATASE 61.1 U/L (56-119); ASPARTATE AMINO TRANSFERASE 44.3 U/L (17-59); BILIRUBIN,TOTAL 1.1 mg/dL (0.2-1.3); BLOOD UREA NITROGEN 40.3 mg/dL (9-20); CALCIUM 8.02 mg/dL (8.4-10.2); CARBON DIOXIDE 28.7 mmol/L (22-30.0); CHLORIDE 116.7 mmol/L (98-107); CREATININE 1.13 mg/dL (0.60-1.10); GLUCOSE 311.7 mg/dL (74-106); POTASSIUM 4.35 mmol/L (3.5-5.1); SODIUM 145.6 mmol/L (134.5-145); TOTAL PROTEIN 5.78 g/dL (6.3-8.2)
--- NOTE | 2022-03-05 11:25 | PCM.PROG ---
Date Seen by Provider: 03/05/22 Time Seen by Provider: 09:45 Subjective: Patient has no complaints. Objective: Vitals: T=97.4 F, P=92, R=26, DP=102/88, SPO2=94 Patient appears to be very weak. Tachypneic. Alert. HEENT: [] Neck: [] Lungs: [] Breath sounds coarse bilaterally. CVS: [] RRR. Pitting edema bilaterally to the level of the knees. Abdomen: [] Extremities: [] Neurological: [] No motor deficits. Skin: [] Lab/Tests/Diagnostic Imaging: [] (1) Acute hypoxemic respiratory failure due to severe acute respiratory syndrome coronavirus 2 (SARS-CoV-2) disease: Status: Acute Code(s): U07.1 - COVID-19; J96.01 - Acute respiratory failure with hypoxia SNOMED Code(s): 028208111 Assessment: Patient requiring increasing levels of inspired oxygen. ABGs show marginal oxygenation. Overall, doing poorly. Prognosis is guarded. (2) COVID-19: Status: Acute Code(s): U07.1 - COVID-19 SNOMED Code(s): 374708198 (3) Community acquired pneumonia: Status: Acute Code(s): J18.9 - Pneumonia, unspecified organism SNOMED Code(s): 743151781 (4) Elevated brain natriuretic peptide (BNP) level: Status: Acute Code(s): R79.89 - Other specified abnormal findings of blood chemistry SNOMED Code(s): 029557735 (5) Peripheral edema: Status: Acute Code(s): R60.9 - Edema, unspecified SNOMED Code(s): 644673838 Plan: Will decrease IV fluid rate. Lasix 40mg IVP.
[2022-03-05] MEDS: SODIUM CHLORIDE 1,000 ML IV SCH ×2 (11:57→19:01)
--- NOTE | 2022-03-05 14:13 | DI ---
EXAM: Chest one view, frontal view only. HISTORY: Dyspnea. COVID-19. COMPARISON: 03/04/2022. FINDINGS: Heart size normal. Atherosclerotic calcifications present. Stable left greater than righ t basilar consolidation and mild right midlung reticular opacities. No frankly new opacity. No pneu mothorax. Degenerative changes present in the spine. IMPRESSION: Stable bilateral pneumonia.
[2022-03-06] MEDS: DUONEB NEB SCH ×6 (01:30→21:10)
[2022-03-06] MEDS: SOLU-MEDROL 125 MG IVP SCH ×3 (04:14→20:38)
[2022-03-06 04:21] LABS: ABG O2 HGB 93.3 % (95-100); BEecf 5.7 (-2.0-3.0); COHb 1.9 (0.5-1.5); HCO3 28.4 (21-28); MetHb 0.9 (0-1.5); TCO2 29.4 (19-24); sO2 95.3 % (94-98); tHb 14.3 g/dl (11.7-17.4)
[2022-03-06 04:23] LABS: ABG PH 7.53 (7.35-7.45)
[2022-03-06 05:30] LABS: HEMATOCRIT 44.9 % (42.0-52.0); HEMOGLOBIN 14.2 g/dl (14.0-18.0); MEAN CORPUSCULAR HEMOGLOBIN 29.5 pg (27.0-31.0); MEAN CORPUSCULAR HGB CONC 31.6 (31.8-35.4); MEAN CORPUSCULAR VOLUME 93.3 fl (80.0-94.0); PLATELET COUNT 224 10^3/uL (140-440); RDW COEFFICIENT OF VARIATION 14.4 % (11.6-14.8); RED BLOOD COUNT 4.81 10^6/ul (4.70-6.10); WHITE BLOOD COUNT 15.61 K/ul (4.2-10.2)
[2022-03-06 05:33] LABS: ANISOCYTOSIS NOT PRESENT (NOT PRESENT)
[2022-03-06 05:42] LABS: ALANINE AMINOTRANSFERASE 48.6 U/L (0-50); ALBUMIN 2.52 g/dL (3.5-5.0); ALKALINE PHOSPHATASE 55.2 U/L (56-119); ASPARTATE AMINO TRANSFERASE 32.9 U/L (17-59); BILIRUBIN,TOTAL 1.04 mg/dL (0.2-1.3); BLOOD UREA NITROGEN 40.9 mg/dL (9-20); CALCIUM 7.96 mg/dL (8.4-10.2); CARBON DIOXIDE 29.3 mmol/L (22-30.0); CHLORIDE 115.3 mmol/L (98-107); CREATININE 0.96 mg/dL (0.60-1.10); GLUCOSE 257.9 mg/dL (74-106); POTASSIUM 4.17 mmol/L (3.5-5.1); SODIUM 145.8 mmol/L (134.5-145); TOTAL PROTEIN 5.63 g/dL (6.3-8.2)
[2022-03-06] MEDS: ASPIRIN EC PO SCH (09:47)
[2022-03-06] MEDS: LOVENOX SUBCUT SCH (09:47)
--- NOTE | 2022-03-06 15:03 | PCM.PROG ---
Date Seen by Provider: 03/06/22 Time Seen by Provider: 07:50 Subjective: Patient states that he is feeling better on the VAPOTHERM. His saturation s ramail > 90 but drops too low 80s when off of the vapotherm continues to want " everything to keep me going" Family maintains Full code status. Objective: Vitals: T=98.4 F, P=99, R=22, ZW=981/8, SPO2=87 HEENT: [Dry mucus membranes, NC In place delivering Vapotherm] Neck: [ supple ] Lungs: [Diminished with some Rale at the left base] CVS: [Regular S1 and S2] Abdomen: [Protuberant, soft with no tenderness, Positive bowel sounds throughout] Extremities: [1-2 + pitting edema on the upper and lower extremities. ] Neurological: [Awake [place] to state name and date of but appears not to be oriented to time ] Skin: [No rash] Lab/Tests/Diagnostic Imaging: [ Laboratory Results - last 24 hr 03/06/22 03/06/22 03/06/22 04:00 04:45 04:45 WBC 15.61 H RBC 4.81 Hgb 14.2 Hct 44.9 MCV 93.3 MCH 29.5 MCHC 31.6 L RDW Coeff of Ben 14.4 Plt Count 224 Neutrophils % (Manual) 98.0 H Lymphocytes % (Manual) 1.0 L Monocytes % (Manual) 1.0 Anisocytosis Not present Puncture Site [place] Excess 5.7 H O2 Saturation 95.3 ABG pH 7.53 H* ABG pCO2 34.0 L ABG pO2 68.0 L ABG HCO3 28.4 H ABG Total CO2 29.4 H Sunny Test Pos Hemoglobin 0.9 Oxyhemoglobin 93.3 L Carboxyhemoglobin 1.9 H Total Hemoglobin 14.3 O2 Delivery Device Vapotherm Oxygen Liter Flow 40.00 FiO2 % 100.0 Sodium 145.8 H Potassium 4.17 Chloride 115.3 H Carbon Dioxide 29.3 Anion Gap 5.37 BUN 40.9 H Creatinine 0.96 Estimated GFR (MDRD) 74.00 BUN/Creatinine Ratio 42.60 Glucose 257.9 H D Calcium 7.96 L Total Bilirubin 1.04 AST 32.9 ALT 48.6 Alkaline Phosphatase 55.2 L NT-Pro-B Natriuret Pep 1640.000 H Total Protein 5.63 L Albumin 2.52 L Globulin 3.11 Albumin/Globulin Ratio 0.81 ] (1) Acute hypoxemic respiratory failure due to severe acute respiratory syndrome coronavirus 2 (SARS-CoV-2) disease: Status: Acute Code(s): U07.1 - COVID-19; J96.01 - Acute respiratory failure with hypoxia SNOMED Code(s): 300466756 Assessment: Continue Steroids and Vapotherm oxygen support. Prognosis is guarded. continues to want to be a fully CODE (2) Community acquired pneumonia: Status: Acute Code(s): J18.9 - Pneumonia, unspecified organism SNOMED Code(s): 752973652 Assessment: Was initially treated with Zithromax and Rocephin now discontinued (3) Elevated brain natriuretic peptide (BNP) level: Status: Acute Code(s): R79.89 - Other specified abnormal findings of blood chemistry SNOMED Code(s): 576948164 Assessment: Was given Lasix 4O mg yesterday. will hold off on more Lasix due to patient appearing dry adrianna mucus membranes (4) Peripheral edema: Status: Acute Code(s): R60.9 - Edema, unspecified SNOMED Code(s): 877053222 Assessment: Given lasix yesterday third spacing due to poor nutrition and being in bed. Plan: Will ask Therapy to do bedside Physical therapy
[2022-03-06] MEDS: NYSTATIN ORAL SUSP PO SCH (20:40)
[2022-03-07] MEDS: DUONEB NEB SCH ×6 (01:08→21:50)
[2022-03-07] MEDS: SODIUM CHLORIDE 1,000 ML IV SCH (02:02)
[2022-03-07 04:36] LABS: ABG O2 HGB 95.4 % (95-100); ABG PH 7.46 (7.35-7.45); BEecf 3.9 (-2.0-3.0); COHb 1.3 (0.5-1.5); HCO3 27.7 (21-28); MetHb 1.4 (0-1.5); TCO2 28.9 (19-24); sO2 97.6 % (94-98); tHb 21.2 g/dl (11.7-17.4)
[2022-03-07] MEDS: SOLU-MEDROL 125 MG IVP SCH ×3 (04:55→20:11)
[2022-03-07 05:31] LABS: HEMATOCRIT 48.7 % (42.0-52.0); HEMOGLOBIN 15.3 g/dl (14.0-18.0); MEAN CORPUSCULAR HEMOGLOBIN 29.3 pg (27.0-31.0); MEAN CORPUSCULAR HGB CONC 31.4 (31.8-35.4); MEAN CORPUSCULAR VOLUME 93.1 fl (80.0-94.0); PLATELET COUNT 189 10^3/uL (140-440); RDW COEFFICIENT OF VARIATION 14.1 % (11.6-14.8); RED BLOOD COUNT 5.23 10^6/ul (4.70-6.10); WHITE BLOOD COUNT 15.04 K/ul (4.2-10.2)
[2022-03-07 05:45] LABS: ALANINE AMINOTRANSFERASE 38.9 U/L (0-50); ALBUMIN 2.66 g/dL (3.5-5.0); ALKALINE PHOSPHATASE 57.6 U/L (56-119); ANISOCYTOSIS NOT PRESENT (NOT PRESENT); ASPARTATE AMINO TRANSFERASE 26.3 U/L (17-59); BILIRUBIN,TOTAL 1.13 mg/dL (0.2-1.3); BLOOD UREA NITROGEN 40.5 mg/dL (9-20); CALCIUM 8.36 mg/dL (8.4-10.2); CARBON DIOXIDE 30.4 mmol/L (22-30.0); CHLORIDE 118.8 mmol/L (98-107); CREATININE 1.08 mg/dL (0.60-1.10); GLUCOSE 283.2 mg/dL (74-106); POTASSIUM 4.61 mmol/L (3.5-5.1); SODIUM 150.9 mmol/L (134.5-145); TOTAL PROTEIN 5.71 g/dL (6.3-8.2)
[2022-03-07] MEDS: NYSTATIN ORAL SUSP PO SCH ×4 (06:31→20:11)
[2022-03-07] MEDS: ASPIRIN EC PO SCH (09:15)
[2022-03-07] MEDS: LOVENOX SUBCUT SCH (09:15)
--- NOTE | 2022-03-07 10:20 | PCM.PROG ---
Date Seen by Provider: 03/07/22 Time Seen by Provider: 09:45 Subjective: No complaints. Oral intake is poor. Objective: Vitals: T=98.5 F, P=111, R=26, LI=431/76, SPO2=96 Patient extremely weak. Somnolent, though arouses easily. HEENT: [] Neck: [] Lungs: [] Breath sounds coarse, though equal. CVS: [] RRR Abdomen: [] Soft, nondistended, nontender. Extremities: [] Marked edema. Neurological: [] Skin: [] Lab/Tests/Diagnostic Imaging: [] (1) Acute hypoxemic respiratory failure due to severe acute respiratory syndrome coronavirus 2 (SARS-CoV-2) disease: Status: Acute Code(s): U07.1 - COVID-19; J96.01 - Acute respiratory failure with hypoxia SNOMED Code(s): 709418473 Assessment: Still requiring high level of FIO2. Prognosis poor for recovery. (2) Community acquired pneumonia: Status: Acute Code(s): J18.9 - Pneumonia, unspecified organism SNOMED Code(s): 217197736 Assessment: Add rocephin (3) Elevated brain natriuretic peptide (BNP) level: Status: Acute Code(s): R79.89 - Other specified abnormal findings of blood chemistry SNOMED Code(s): 035023070 Assessment: Fluid balance improved. (4) Peripheral edema: Status: Acute Code(s): R60.9 - Edema, unspecified SNOMED Code(s): 970596692 Plan: Plans as above.
[2022-03-07] MEDS ORDERED: SODIUM CHLORIDE 1,000 ML IV SCH (11:00)
[2022-03-07 11:12] LABS: BASOPHILS % (AUTO) 0.1 % (0.0-3.0); HEMATOCRIT 48.8 % (42.0-52.0); IMMATURE GRANULOCYTE # (AUTO) 0.1 (0.0-1.0); IMMATURE GRANULOCYTE % (AUTO) 0.4 % (0.0-5.0); LYMPHOCYTES # (AUTO) 0.2 K/uL (0.60-3.4); LYMPHOCYTES % (AUTO) 1.4 (10.0-50.0); MEAN CORPUSCULAR HEMOGLOBIN 28.6 pg (27.0-31.0); MEAN CORPUSCULAR HGB CONC 30.7 (31.8-35.4); MEAN CORPUSCULAR VOLUME 93.1 fl (80.0-94.0); MONOCYTES # (AUTO) 0.4 K/uL (0.4-2.0); MONOCYTES % (AUTO) 2.5 (0-10); NEUTROPHILS # (AUTO) 13.2 K/ul (2.0-6.9); NEUTROPHILS % (AUTO) 95.6 % (42.2-75.2); PLATELET COUNT 194 10^3/uL (140-440); RED BLOOD COUNT 5.24 10^6/ul (4.70-6.10); WHITE BLOOD COUNT 13.82 K/ul (4.2-10.2)
[2022-03-07 11:25] LABS: ALANINE AMINOTRANSFERASE 37.8 U/L (0-50); ALBUMIN 2.55 g/dL (3.5-5.0); ALKALINE PHOSPHATASE 54.7 U/L (56-119); ASPARTATE AMINO TRANSFERASE 27.3 U/L (17-59); BILIRUBIN,TOTAL 1.12 mg/dL (0.2-1.3); BLOOD UREA NITROGEN 41.5 mg/dL (9-20); CALCIUM 8.33 mg/dL (8.4-10.2); CHLORIDE 119.7 mmol/L (98-107); CREATININE 1.11 mg/dL (0.60-1.10); GLUCOSE 296.1 mg/dL (74-106); POTASSIUM 4.65 mmol/L (3.5-5.1); SODIUM 151.5 mmol/L (134.5-145); TOTAL PROTEIN 5.55 g/dL (6.3-8.2)
--- NOTE | 2022-03-07 11:37 | DI ---
EXAM: Chest one view, frontal view only. HISTORY: Chest congestion, lethargy. COMPARISON: 03/05/2022. FINDINGS: Heart size stable. Atherosclerotic calcifications present. Persistent left greater than right basilar consolidation. Right midlung reticular opacities also stable. No new opacity. No lar ge pleural effusion or pneumothorax. No acute osseous abnormality. IMPRESSION: Stable appearance of the chest suggesting bilateral pneumonia.
[2022-03-07] MEDS: ROCEPHIN 2 GM/50 ML D5W 2 GM/50 ML BAG IV SCH ×2 (11:43→11:46)
[2022-03-07 11:58] LABS: BILIRUBIN,URINE Negative (NEGATIVE); CLARITY,URINE Clear (CLEAR); COLOR,URINE Yellow (YELLOW); GLUCOSE, URINE (UA) 2+ (NEGATIVE); KETONES,URINE Negative (NEGATIVE); LEUKOCYTE ESTERASE ,URINE 1+ (NEGATIVE); NITRITE,URINE Negative (NEGATIVE); PROTEIN,URINE Trace (NEGATIVE); URINE, BLOOD 2+ (NEGATIVE); UROBILINOGEN,URINE 0.2 (0.2)
[2022-03-07 12:10] LABS: BACTERIA,URINE 1+ (NOT PRESENT); SQUAMOUS EPITHELIAL CELL,UR 0-2 (0-5)
[2022-03-07] MEDS: TYLENOL RC PRN (20:12)
[2022-03-07] MEDS: MORPHINE 2 MG/ML SYRINGE IVP PRN (23:35)
[2022-03-08] MEDS: DUONEB NEB SCH ×6 (01:10→21:25)
[2022-03-08] MEDS: MORPHINE 2 MG/ML SYRINGE IVP PRN ×2 (02:03→18:28)
[2022-03-08 04:27] LABS: ABG PH 7.45 (7.35-7.45); COHb 1.5 (0.5-1.5); MetHb 1.5 (0-1.5); TCO2 26.1 (19-24); sO2 97.2 % (94-98); tHb 16.3 g/dl (11.7-17.4)
[2022-03-08] MEDS: SOLU-MEDROL 125 MG IVP SCH (04:39)
[2022-03-08 05:50] LABS: BASOPHILS % (AUTO) 0.1 % (0.0-3.0); HEMATOCRIT 51.9 % (42.0-52.0); HEMOGLOBIN 15.8 g/dl (14.0-18.0); IMMATURE GRANULOCYTE # (AUTO) 0.1 (0.0-1.0); IMMATURE GRANULOCYTE % (AUTO) 0.4 % (0.0-5.0); LYMPHOCYTES # (AUTO) 0.3 K/uL (0.60-3.4); LYMPHOCYTES % (AUTO) 1.8 (10.0-50.0); MEAN CORPUSCULAR HGB CONC 30.4 (31.8-35.4); MEAN CORPUSCULAR VOLUME 95.2 fl (80.0-94.0); MONOCYTES # (AUTO) 0.5 K/uL (0.4-2.0); MONOCYTES % (AUTO) 3.4 (0-10); NEUTROPHILS # (AUTO) 13.8 K/ul (2.0-6.9); NEUTROPHILS % (AUTO) 94.3 % (42.2-75.2); PLATELET COUNT 158 10^3/uL (140-440); RDW COEFFICIENT OF VARIATION 14.4 % (11.6-14.8); RED BLOOD COUNT 5.45 10^6/ul (4.70-6.10); WHITE BLOOD COUNT 14.66 K/ul (4.2-10.2)
[2022-03-08 06:03] LABS: ALANINE AMINOTRANSFERASE 35.7 U/L (0-50); ALBUMIN 2.67 g/dL (3.5-5.0); ALKALINE PHOSPHATASE 55.6 U/L (56-119); BILIRUBIN,TOTAL 1.22 mg/dL (0.2-1.3); BLOOD UREA NITROGEN 58.3 mg/dL (9-20); CALCIUM 8.24 mg/dL (8.4-10.2); CARBON DIOXIDE 27.6 mmol/L (22-30.0); CHLORIDE 120.1 mmol/L (98-107); CREATININE 1.49 mg/dL (0.60-1.10); GLUCOSE 316.9 mg/dL (74-106); POTASSIUM 5.04 mmol/L (3.5-5.1); SODIUM 154.1 mmol/L (134.5-145); TOTAL PROTEIN 5.64 g/dL (6.3-8.2)
[2022-03-08] MEDS ORDERED: SODIUM CHLORIDE 1,000 ML IV SCH (07:43)
--- NOTE | 2022-03-08 08:27 | PCM.PROG ---
Date Seen by Provider: 03/08/22 Time Seen by Provider: 08:00 Subjective: Patient denies any pain. Continues to be on Vapotherm for Respiratory failure with hypoxia Objective: Vitals: T=100.8 F, P=120, R=24, MS=388/78, SPO2=94 HEENT: [Mucus membranes Dry, Vapotherm per nasal cannular] Neck: [Supple ] Lungs: [Right lung Diminished with no wheezing. Left basilar Rales noted on auscultation] CVS: [Regular S1 and S2 only ] Abdomen: [Flat, Soft Non tender. + bowel sounds ] Byrd catheter in place draining small amount of urine Extremities: [No edema, Dry scaly skin, No heel ulcers. Upper extremity Edema 2+ ] Neurological: [Awake Responsive to Voice] Skin: [Dry skin] Lab/Tests/Diagnostic Imaging: [ Laboratory Results - last 24 hr 03/07/22 03/07/22 03/07/22 11:05 11:05 11:05 WBC 13.82 H RBC 5.24 Hgb 15.0 Hct 48.8 MCV 93.1 MCH 28.6 MCHC 30.7 L RDW Coeff of Ben 14.0 Plt Count 194 Immature Gran % (Auto) 0.4 Neut % (Auto) 95.6 H Lymph % (Auto) 1.4 L [place] % (Auto) 2.5 Eos % (Auto) 0.0 Baso % (Auto) 0.1 Neut # (Auto) 13.2 H Lymph # (Auto) 0.2 L [place] # (Auto) 0.4 Eos # (Auto) 0.0 Baso # (Auto) 0.0 Immature Gran # (Auto) 0.1 Puncture Site Base Excess O2 Saturation ABG pH ABG pCO2 ABG pO2 ABG HCO3 ABG Total CO2 Sunny Test Hemoglobin Oxyhemoglobin Carboxyhemoglobin Total Hemoglobin O2 Delivery Device FiO2 % Sodium Potassium Chloride Carbon Dioxide Anion Gap BUN Creatinine Estimated GFR (MDRD) BUN/Creatinine Ratio Glucose Lactic Acid 2.53 H Calcium Total Bilirubin AST ALT Alkaline Phosphatase Total Protein Albumin Globulin Albumin/Globulin Ratio Procalcitonin < 0.05 Urine Color Urine Clarity Urine pH Ur Specific [place] Urine Protein Urine Glucose (UA) Urine Ketones Urine Blood Urine Nitrite Urine Bilirubin Urine Urobilinogen Ur Leukocyte Esterase Urine Microscopic RBC Urine Microscopic WBC Ur Squamous Epith Cells Urine Bacteria 03/07/22 03/07/22 03/08/22 11:05 11:40 04:05 WBC RBC Hgb Hct MCV MCH MCHC RDW Coeff of Ben Plt Count Immature Gran % (Auto) Neut % (Auto) Lymph % (Auto) [place] % (Auto) Eos % (Auto) Baso % (Auto) Neut # (Auto) Lymph # (Auto) [place] # (Auto) Eos # (Auto) Baso # (Auto) Immature Gran # (Auto) Puncture Site [place] Excess 1.0 O2 Saturation 97.2 ABG pH 7.45 ABG pCO2 36.0 ABG pO2 88.0 ABG HCO3 25.0 ABG Total CO2 26.1 H Sunny Test Pos Hemoglobin 1.5 Oxyhemoglobin 95.0 Carboxyhemoglobin 1.5 Total Hemoglobin 16.3 O2 Delivery Device Vapotherm nrb FiO2 % 100.0 Sodium 151.5 H Potassium 4.65 Chloride 119.7 H Carbon Dioxide 30.0 Anion Gap 6.45 BUN 41.5 H Creatinine 1.11 H Estimated GFR (MDRD) 63.00 BUN/Creatinine Ratio 37.38 Glucose 296.1 H Lactic Acid Calcium 8.33 L Total Bilirubin 1.12 AST 27.3 ALT 37.8 Alkaline Phosphatase 54.7 L Total Protein 5.55 L Albumin 2.55 L Globulin 3.00 Albumin/Globulin Ratio 0.85 Procalcitonin Urine Color Yellow Urine Clarity Clear Urine pH 6.0 Ur Specific [place] 1.020 Urine Protein Trace H Urine Glucose (UA) 2+ H Urine Ketones Negative Urine Blood 2+ H Urine Nitrite Negative Urine Bilirubin Negative Urine Urobilinogen 0.2 Ur Leukocyte Esterase 1+ H Urine Microscopic RBC 2-5 Urine Microscopic WBC 2-5 Ur Squamous Epith Cells 0-2 Urine Bacteria 1+ 03/08/22 03/08/22 04:53 04:53 WBC 14.66 H RBC 5.45 Hgb 15.8 Hct 51.9 MCV 95.2 H MCH 29.0 MCHC 30.4 L RDW Coeff of Ben 14.4 Plt Count 158 Immature Gran % (Auto) 0.4 Neut % (Auto) 94.3 H Lymph % (Auto) 1.8 L [place] % (Auto) 3.4 Eos % (Auto) 0.0 Baso % (Auto) 0.1 Neut # (Auto) 13.8 H Lymph # (Auto) 0.3 L [place] # (Auto) 0.5 Eos # (Auto) 0.0 Baso # (Auto) 0.0 Immature Gran # (Auto) 0.1 Puncture Site Base Excess O2 Saturation ABG pH ABG pCO2 ABG pO2 ABG HCO3 ABG Total CO2 Sunny Test Hemoglobin Oxyhemoglobin Carboxyhemoglobin Total Hemoglobin O2 Delivery Device FiO2 % Sodium 154.1 H Potassium 5.04 Chloride 120.1 H Carbon Dioxide 27.6 Anion Gap 11.44 BUN 58.3 H Creatinine 1.49 H Estimated GFR (MDRD) 45.00 BUN/Creatinine Ratio 39.12 Glucose 316.9 H Lactic Acid Calcium 8.24 L Total Bilirubin 1.22 AST 31.0 ALT 35.7 Alkaline Phosphatase 55.6 L Total Protein 5.64 L Albumin 2.67 L Globulin 2.97 Albumin/Globulin Ratio 0.89 Procalcitonin Urine Color Urine Clarity Urine pH Ur Specific [place] Urine Protein Urine Glucose (UA) Urine Ketones Urine Blood Urine Nitrite Urine Bilirubin Urine Urobilinogen Ur Leukocyte Esterase Urine Microscopic RBC Urine Microscopic WBC Ur Squamous Epith Cells Urine Bacteria Chest x ray: 03/07/2022 IMPRESSION: Stable appearance of the chest suggesting bilateral pneumonia. (1) Acute hypernatremia: Status: Acute Code(s): E87.0 - Hyperosmolality and hypernatremia SNOMED Code(s): 0754982 Assessment: Likely due to Dehydration. Had Lasix 2 days ago x1 for upper extremity Edema. Start D5 1/2 NS @ 100ml per hour (2) Acute hypoxemic respiratory failure due to severe acute respiratory syndrome coronavirus 2 (SARS-CoV-2) disease: Status: Acute Code(s): U07.1 - COVID-19; J96.01 - Acute respiratory failure with hypoxia SNOMED Code(s): 352455248 Assessment: Pertinent Lab 02/28/22 03/04/22 03/05/22 21:21 10:08 04:55 O2 Saturation 81.1 L 89.0 L 94.2 ABG pH 7.49 H 7.46 H 7.51 H* ABG pCO2 26.0 L 33.0 L 33.0 L ABG pO2 41.0 L* 53.0 L* 64.0 L ABG HCO3 19.8 L 23.5 26.3 ABG Total CO2 20.5 24.5 H 27.3 H O2 Delivery Device Cannulanrb Vapotherm Oxygen Liter Flow 15.00 FiO2 % 21.0 100.0 100.0 03/06/22 03/07/22 03/08/22 04:00 04:30 04:05 O2 Saturation 95.3 97.6 97.2 ABG pH 7.53 H* 7.46 H 7.45 ABG pCO2 34.0 L 39.0 36.0 ABG pO2 68.0 L 93.0 88.0 ABG HCO3 28.4 H 27.7 25.0 ABG Total CO2 29.4 H 28.9 H 26.1 H O2 Delivery Device Vapotherm Vapotherm Vapotherm nrb Oxygen Liter Flow 40.00 FiO2 % 100.0 100.0 100.0 ABG's are acceptable given COVID-19 disease Continue Vapotherm and supportive care Change solumedrol to Dexamethasone 6mg IV daily (3) Peripheral edema: Status: Acute Code(s): R60.9 - Edema, unspecified SNOMED Code(s): 833020783 Assessment: Due to poor Nutrition with Low Albumin Will ask Nutrition to see if he can benefit from supplementations. Try to keep upper extremities elevated instead of Diuretics (4) Community acquired pneumonia: Status: Acute Code(s): J18.9 - Pneumonia, unspecified organism SNOMED Code(s): 257365606 Assessment: Continue Rocephin 2 gm for 10 days total. Completed Zithromax started on admission. Plan: Continue current Treatment.
[2022-03-08] MEDS: ASPIRIN EC PO SCH (09:46)
[2022-03-08] MEDS: ROCEPHIN 2 GM/50 ML D5W 2 GM/50 ML BAG IV SCH (09:46)
[2022-03-08] MEDS: DECADRON IVP SCH (09:46)
[2022-03-08] MEDS: LOVENOX SUBCUT SCH (09:46)
[2022-03-08] MEDS: DEXTROSE 5%-1/2NS IV SOLUTION 1,000 ML IV SCH ×2 (09:46→21:19)
[2022-03-08] MEDS: NYSTATIN ORAL SUSP PO SCH (09:47)
[2022-03-09] MEDS: TYLENOL RC PRN (02:17)
[2022-03-09] MEDS: DUONEB NEB SCH ×3 (03:24→10:31)
[2022-03-09 05:20] VITALS: BP 102/74; TEMP 102
[2022-03-09 06:22] LABS: ABG O2 HGB 96.5 % (95-100); ABG PH 7.41 (7.35-7.45); BEecf -6.9 (-2.0-3.0); COHb 1.5 (0.5-1.5); HCO3 17.7 (21-28); MetHb 1.2 (0-1.5); TCO2 18.6 (19-24); sO2 98.4 % (94-98); tHb 17.3 g/dl (11.7-17.4)
[2022-03-09 06:44] LABS: HEMATOCRIT 52.5 % (42.0-52.0); HEMOGLOBIN 16.1 g/dl (14.0-18.0); MEAN CORPUSCULAR HEMOGLOBIN 28.9 pg (27.0-31.0); MEAN CORPUSCULAR HGB CONC 30.7 (31.8-35.4); MEAN CORPUSCULAR VOLUME 94.1 fl (80.0-94.0); PLATELET COUNT 140 10^3/uL (140-440); RDW COEFFICIENT OF VARIATION 14.5 % (11.6-14.8); RED BLOOD COUNT 5.58 10^6/ul (4.70-6.10); WHITE BLOOD COUNT 9.72 K/ul (4.2-10.2)
[2022-03-09 06:47] LABS: ALANINE AMINOTRANSFERASE 200.9 U/L (0-50); ALBUMIN 2.43 g/dL (3.5-5.0); ALKALINE PHOSPHATASE 47.3 U/L (56-119); ASPARTATE AMINO TRANSFERASE 556.8 U/L (17-59); BILIRUBIN,TOTAL 1.54 mg/dL (0.2-1.3); CALCIUM 7.8 mg/dL (8.4-10.2); CARBON DIOXIDE 22.4 mmol/L (22-30.0); CHLORIDE 119.6 mmol/L (98-107); CREATININE 2.6 mg/dL (0.60-1.10); POTASSIUM 5.8 mmol/L (3.5-5.1); SODIUM 149.6 mmol/L (134.5-145); TOTAL PROTEIN 5.29 g/dL (6.3-8.2)
[2022-03-09 07:01] LABS: BLOOD UREA NITROGEN 91.6 mg/dL (9-20); GLUCOSE 623.2 mg/dL (74-106)
[2022-03-09 07:22] LABS: ANISOCYTOSIS NOT PRESENT (NOT PRESENT)
[2022-03-09] MEDS ORDERED: HUMULIN R IV ONE (08:13)
[2022-03-09] MEDS: ASPIRIN EC PO SCH (10:17)
[2022-03-09] MEDS: DECADRON IVP SCH (10:17)
[2022-03-09] MEDS: DEXTROSE 5%-1/2NS IV SOLUTION 1,000 ML IV SCH (10:18)
[2022-03-09] MEDS ORDERED: HUMULIN R SUBCUT PRN (10:20)
--- NOTE | 2022-03-09 10:23 | PCM.PROG ---
Date Seen by Provider: 03/09/22 Time Seen by Provider: 08:25 Subjective: Pt condition had worsened significantly. He was taling yesterday but is not essentially unresponsive. He is constantly tachycardic and his labs have worsened significantly. He is on a Non-rebreather. Objective: Vitals: T=102 F, P=144, R=34, UQ=356/74, SPO2=95 HEENT: Pupils minimally reactive Neck: supple Lungs: Rales diffuse bilaterally with moderate respiratory distress. CVS: tachycardia Abdomen: soft Extremities: 1+ edema to all extremities Neurological: Pt is unresponsive except to noxious stimuli Lab/Tests/Diagnostic Imaging: CBC is normal, Na 150, Glucose 623, K+ 5.8, Cr 2.6, AST 556, ALT 200 (1) Acute hypernatremia: Status: Acute Code(s): E87.0 - Hyperosmolality and hypernatremia SNOMED Code(s): 3301828 (2) Acute hypoxemic respiratory failure due to severe acute respiratory syndrome coronavirus 2 (SARS-CoV-2) disease: Status: Acute Code(s): U07.1 - COVID-19; J96.01 - Acute respiratory failure with hypoxia SNOMED Code(s): 923590404 (3) Peripheral edema: Status: Acute Code(s): R60.9 - Edema, unspecified SNOMED Code(s): 230490056 (4) Community acquired pneumonia: Status: Acute Code(s): J18.9 - Pneumonia, unspecified organism SNOMED Code(s): 796026801 Plan: 1. Covid infection: Condition significantly deteriorating. Now showing end organ failure as well as worsening mental status. His condition is now becoming critical. I had a long discussion with family about options. I offered to keep him a full code, intubate him and trransfer him to another facility that is a higher level of care vs making him a DNR/DNI and treating the abnormalities with the understanding that he is likely to . After discussion, he is being made a DNR/DNI. 2, Hyperglycemia: Will DC the D5 1/2 NS and start normal saline. Will place on SS insulin to bring down the insulin. DC dexamethatsone 3. Acute renal injury: Start giving NS. 4. Elevated liver enzymes: Continue to monitor for worsening liver failure.
[2022-03-09] MEDS ORDERED: SODIUM CHLORIDE 1,000 ML IV SCH ×2 (10:30→13:00)
[2022-03-09] MEDS: LOVENOX SUBCUT SCH (11:02)
[2022-03-09] MEDS: ROCEPHIN 2 GM/50 ML D5W 2 GM/50 ML BAG IV SCH (11:03)
--- NOTE | 2022-03-09 11:08 | PCM.DC ---
Final Diagnosis: Covid 19 infection (1) Acute hypernatremia: Status: Acute Code(s): E87.0 - Hyperosmolality and hypernatremia SNOMED Code(s): 0878433 (2) Acute hypoxemic respiratory failure due to severe acute respiratory syndrome coronavirus 2 (SARS-CoV-2) disease: Status: Acute Code(s): U07.1 - COVID-19; J96.01 - Acute respiratory failure with hypoxia SNOMED Code(s): 344402190 (3) Peripheral edema: Status: Acute Code(s): R60.9 - Edema, unspecified SNOMED Code(s): 981977004 (4) Community acquired pneumonia: Status: Acute Code(s): J18.9 - Pneumonia, unspecified organism SNOMED Code(s): 224442622
--- NOTE | 2022-03-09 11:09 | PCM.PROG ---
Time of : 11:01 Preliminary Cause of : Covid 19 infection with multi system failure.
--- NOTE | 2022-03-09 11:12 | PCM.PROG ---
Pt took a significant turn for the worse between last night and today. I spoke with the family who made him a DNR/DNI. Shortly after he became completely unresponsive and his heart stopped. Time of was called at 11:01 AM.
== END 2022-03-09 14:15 | disposition expired | DRG 177 ==
LOC: ED 19:15 → SCU 20:54 → EDSTATUS 03-01 10:31
PROVIDERS: ADMIT Internal Medicine Geriatric Medicine; ATTEND Emergency Medicine
DX: E87.0 Hyperosmolality and hypernatremia; R53.1 Weakness; J18.9 Pneumonia, unspecified organism; Z20.822 Contact with and (suspected) exposure to COVID-19; R60.9 Edema, unspecified; Z66 Do not resuscitate; Z87.891 Personal history of nicotine dependence; J96.01 Acute respiratory failure with hypoxia; R00.0 Tachycardia, unspecified; R26.81 Unsteadiness on feet; Z86.19 Personal history of other infectious and parasitic diseases; Z79.899 Other long term (current) drug therapy; Z51.81 Encounter for therapeutic drug level monitoring; U07.1 COVID-19; R79.89 Other specified abnormal findings of blood chemistry